=== PATIENT | male | born 1945 | race Caucasian/White ===

== ENCOUNTER 2023-12-04 16:05 | Emergency (ER) | payer SELFPAY ==
--- NOTE | 2023-12-04 16:15 | ED.MUSCINJ ---
HPI-Injury
<Paz Robledo RAILROAD CONSTRUCTION DIRECTOR - Last Filed: 12/04/23 16:18>
General
Chief Complaint: Fall
Time Seen by Provider: 12/04/23 16:28
<Miguel Henriquez Jr., PA-C - Last Filed: 12/04/23 18:55>
General
Source: patient
Exam Limitations: none
Nursing documentation reviewed up to this point in time: agreed with
History of Present Illness-Injury
Is this injury a work related problem?: No
Is pt an associate of [facility]?: No
Initial Injury comments:
78-year-old male patient with history of dementia CKD diabetes presenting to the emergency department after trip over a curb hitting the right side of his forehead and right elbow. Not sure when his last tetanus shot was. Denies any loss of
consciousness otherwise feels well no additional concerns
ED Provider Triage
<Paz Robledo [employer]ILRO[employer] CONSTRUCTION DIRECTOR - Last Filed: 12/04/23 16:18>
-
Attestation: A medical screening examination has been initiated by a qualified medical provider. Based on the assessment performed at this time, it has been determined that an emergent medical condition may exist and the patient has been informed
that further medical evaluation and possible additional diagnostic testing may be needed.
HPI: Walking in park with caregiver, tripped, hit right cheek and eyebrow, right elbow scraped. No LOC, No thinners. No headache, no new neck pain
GENERAL: Alert , in no apparent distress
EYE: No visual abnormalities. EOMs intact, contusion mild swelling upper right cheek. Two small abrasions outer right eyepbrow.
ENT: No visible abnormalities.
LUNGS: No acute respiratory distress
NEUROLOGICAL: Alert and oriented
SKIN: Abrasion right elbow. Skin intact. No visible changes.
MUSCULOSKELETAL: Moving extremities normally
PSYCH: Normal and appropriate interaction.
This is a medical evaluation conducted in person to initiate diagnostic evaluation and provide initial therapeutics. Please see further documentation by the treating clinician.
<Miguel Henriquez Jr., PA-C - Last Filed: 12/04/23 18:55>
-
Patient seen by provider in Triage?: Seen in Triage
Review of Systems
<Miguel Henriquez Jr., PA-C - Last Filed: 12/04/23 18:55>
Review of Systems
Allergies reviewed?: Yes
All Other Systems: ROS reviewed and negative except as documented in HPI and ROS
Phy Exam
<Miguel Henriquez Jr., PA-C - Last Filed: 12/04/23 18:55>
Physical Exam
Physical Exam:
GENERAL: Alert , in no apparent distress
EYE: pupils equal and reactive
NECK: Supple, no significant adenopathy.
ENT: Superficial abrasion to the right forehead o/p clr, mmm.
CARDIAC: Regular rate and rhythm .
LUNGS: Clear breath sounds bilaterally, no acute respiratory distress, no wheezes/rales/rhonchi
ABDOMEN: Soft, without focal tenderness, no r/g, no cvat
NEUROLOGICAL: Alert no focal neuro deficits 5 out of 5 upper and lower extremity strength normal sensation when palpating bilaterally.
SKIN: Superficial skin avulsion to the right elbow on the lateral aspect. Roughly 2 cm x 2 cm in size warm and dry, skin intact.
MUSCULOSKELETAL: No edema, well perfused.
PSYCH: Normal and appropriate interaction.
Injury Course
<Paz Robledo, RAILROAD CONSTRUCTION DIRECTOR - Last Filed: 12/04/23 16:18>
Orders/Labs/Results
Orders:
Orders
12/04/23 16:28
CR Elbow - Right Min 3 Views Urgent
Comment:
Reason For Exam: right elbow
12/04/23 16:34
CT Head W/o Iv Contrast Urgent
Comment:
Reason For Exam: fall hit head
12/04/23 16:54
Tetanus/Diphth/Acelpertussis [Adacel] 0.5 ml IM .ONCE ONE
12/04/23 17:27
Hand, Left 3 View [CR Hand - Left Min 3 Views] Urgent
Comment:
Reason For Exam: pain, bruising
<Miguel Henriquez Jr., PA-C - Last Filed: 12/04/23 18:55>
Orders/Labs/Results
Orders:
Orders
12/04/23 16:28
CR Elbow - Right Min 3 Views Urgent
Comment:
Reason For Exam: right elbow
12/04/23 16:34
CT Head W/o Iv Contrast Urgent
Comment:
Reason For Exam: fall hit head
12/04/23 16:54
Tetanus/Diphth/Acelpertussis [Adacel] 0.5 ml IM .ONCE ONE
12/04/23 17:27
Hand, Left 3 View [CR Hand - Left Min 3 Views] Urgent
Comment:
Reason For Exam: pain, bruising
<Miguel Henriquez Jr., PA-C - Last Filed: 12/04/23 18:55>
MDM/Problems Addressed
MDM/Problems Addressed:
78-year-old male presenting to the emergency department today after a mechanical fall prior to arrival. Hit his right forehead and right elbow. Here patient well-appearing no distress. Vital signs normal. Patient has a superficial skin avulsion
to the right elbow and a small scrape to the right forehead. CT scan ordered for further assessment as well as x-ray of the right elbow and hand. CT scan as well as x-rays without emergent findings. Steri-Strips were placed and the patient
superficial skin avulsion to the right elbow otherwise stable for discharge return precautions given.
<Miguel Henriquez Jr., PA-C - Last Filed: 12/04/23 18:55>
*Critical Care Note
Total Time (30-74mins, 75-104mins- exclusive of procedures): Not Applicable
ED Attending Note
<Paz Robledo NP - Last Filed: 12/04/23 16:18>
-
Portions of this chart may have been created with voice recognition software.� Occasional wrong word or��sound alike� substitutions may have occurred due to the inherent limitations of voice recognition software.
Discharge Plan
Departure
Patient Disposition: Home (Routine Discharge)
Date of Disposition: 12/04/23
Time of Disposition: 18:54
Patient with high blood pressure during this ER visit?: No
Condition: Good
Covid-19: Not Applicable
Discharge Problem:
Fall, Skin tear
Instructions: Preventing falls in adults
Referrals:
Scarlett Castro MD [Family Provider] -
Activity Restrictions/Additional Instructions:
You came to the emergency department today after a fall. You had reassuring CT scan as well as x-rays. Please keep your elbow clean covered and return for any worsening, new or concerning symptoms.
Interventions
Interventions:
*Risk Screen - Suicide Last Done: 12/04/23 16:19
*Neglect/Abuse Screening Last Done: 12/04/23 16:19
ED-Musculoskeletal Assessment Last Done: 12/04/23 17:35
ED- Neurological Assessment Last Done: 12/04/23 17:35
ED-Skin Assessment Last Done: 12/04/23 17:35
Discharge Date and Time
Print Language: YI
[2023-12-04 16:19] VITALS: BP 134/78
[2023-12-04] MEDS: ADACEL 0.5 ML IM (17:34)
== END 2023-12-04 19:33 | disposition home or self-care (01) ==
LOC: EMR 16:05
PROVIDERS: EMERGENCY PHYSICIAN Emergency Medicine; FAMILY PHYSICIAN Internal Medicine Geriatric Medicine
DX: S51.011A Laceration without foreign body of right elbow, initial encounter (principal); S00.83XA Contusion of other part of head, initial encounter; S00.211A Abrasion of right eyelid and periocular area, initial encounter; W10.1XXA Fall (on)(from) sidewalk curb, initial encounter; Z23 Encounter for immunization; G30.9 Alzheimer's disease, unspecified; F02.80 Dementia in other diseases classified elsewhere, unspecified severity, without behavioral disturbance, psychotic disturbance, mood disturbance, and anxiety; E11.40 Type 2 diabetes mellitus with diabetic neuropathy, unspecified; F41.9 Anxiety disorder, unspecified; E55.9 Vitamin D deficiency, unspecified; Z88.2 Allergy status to sulfonamides
CPT/HCPCS: 99284; 90471; 70450; 73080; 73130; 90715